=== PATIENT | female | born 1965 | race African-American/Black ===

== ENCOUNTER 2020-12-23 13:55 | Outpatient (REF) | payer MEDICARE, SELFPAY ==
--- NOTE | ~2020-12-23 | XR_ITS ---
EXAMINATION: XR CHEST CLINICAL INFORMATION: Cough COMPARISON: None TECHNIQUE: Frontal view of the chest was obtained. FINDINGS: The cardiac silhouette is enlarged. There is pulmonary venous redistribution and small bilateral pleural effusions. Findings are suggestive of mild CHF. The pulmonary christel are prominent, particularly the right, questionable for enlarged pulmonary arteries versus a lymphadenopathy. There is minimal subsegmental atelectasis at the left lung base. The lungs are otherwise clear. Bony structures are unremarkable. XR/XR chest 1V IMPRESSION: Enlarged cardiac silhouette and probable mild CHF. Prominent pulmonary christel, right greater than left. Differential would include enlarged pulmonary arteries and hilar lymphadenopathy.
== END 2020-12-23 13:56 | disposition home or self-care (01) ==
LOC: HO.XRAY 13:55
PROVIDERS: Visit Provider Hospitalist
DX: R05 Cough (principal)
CPT/HCPCS: 71045

== ENCOUNTER 2021-03-13 10:33 | Outpatient (REF) | payer MEDICARE, SELFPAY ==
[2021-03-13 14:34] LABS: B Type Natriuretic Peptide 3047 pg/mL (<100)
[2021-03-13 14:38] LABS: Anion Gap 16 (12-20); Blood Urea Nitrogen 28 mg/dL (9-16); Calcium 9.3 mg/dL (8.4-10.2); Carbon Dioxide 31 mmol/L (22-29); Chloride 101 mmol/L (96-108); Estimated Glomerular Filt Rate 8; Glucose Random 90 mg/dL (60-115); Sodium 143 mmol/L (135-145)
== END 2021-03-13 10:34 | disposition home or self-care (01) ==
LOC: HO.WFDLDS 10:33
PROVIDERS: Visit Provider Family Medicine
DX: Z00.00 Encounter for general adult medical examination without abnormal findings (principal); I50.9 Heart failure, unspecified
CPT/HCPCS: 36415; 80048; 83880

== ENCOUNTER 2021-11-19 10:08 | Outpatient (REF) | payer MEDICARE, SELFPAY ==
[2021-11-19 11:29] LABS: Mean Corpuscular HGB Conc 29.4 g/dl (31.0-35.0); Mean Corpuscular Hemoglobin 27.4 pg (27.0-33.0); Mean Corpuscular Volume 93.2 fL (80.0-98.0); Mean Platelet Volume 11.4 fL (9.4-12.3); Platelet Count 216 X10*3/uL (160-400); Red Blood Count 3.65 X10*6/uL (4.20-5.50); Red Cell Distribution Width 18.6 % (11.0-16.0); White Blood Count 5.3 X10*3/uL (4.8-10.8)
[2021-11-19 12:18] LABS: Anion Gap 19 (12-20); Blood Urea Nitrogen 56 mg/dL (9-16); Calcium 10.7 mg/dL (8.4-10.2); Carbon Dioxide 32 mmol/L (22-29); Chloride 92 mmol/L (96-108); Estimated Glomerular Filt Rate 4; Glucose Random 112 mg/dL (60-115); Potassium 5.3 mmol/L (3.3-5.1); Sodium 138 mmol/L (135-145)
== END 2021-11-19 10:09 | disposition home or self-care (01) ==
LOC: HO.WFDLDS 10:08
PROVIDERS: Visit Provider Hospitalist
DX: Z01.818 Encounter for other preprocedural examination (principal); K05.6 Periodontal disease, unspecified
CPT/HCPCS: 36415; 80048; 85027

== ENCOUNTER 2023-05-18 10:50 | Outpatient (AMB) | payer OTHER, SELFPAY ==
--- NOTE | 2023-05-18 10:55 | MHC.PC.OV ---
Vital Signs 05/18/23 10:56 Height 5 ft 2 in Weight 134 lb BMI 24.5 BP 110/72 Blood Pressure Location Rt brachial Position Sitting Respiration 12 Pulse 64 Pulse Source Pulse Oximeter Temp 98.4 F Temp Source Temporal Artery Scan Pulse Oximetry (%) 97 Oxygen Delivery Method Room Air Intake Visit Reasons: Physical Exam Elevator Erector Helper Required: Yes Elevator Erector Helper Name: Cary ([id number]) Accompanied by: Self / Same As Patient Allergies No Known Allergies Allergy (Verified 05/18/23 11:28) Medication List - Last Reconciled 05/18/23 by Christian Tomlinson CNP acetaminophen 650 mg PO Q4H PRN atorvastatin 80 mg PO BEDTIME carvedilol 25 mg PO BID docusate sodium 100 mg PO BID lamotrigine 200 mg PO Q8H magnesium oxide 400 mg PO DAILY multivitamin 1 tab PO DAILY mycophenolate sodium 720 mg PO BID oxycodone 5 mg PO Q8H PRN pantoprazole 40 mg PO DAILY 90 days prednisone 7.5 mg PO DAILY psyllium seed (sugar) (Metamucil (sugar) oral powder) 1 tbsp PO DAILY sacubitril-valsartan 97-103 mg (Entresto) 1 tab PO BID senna-docusate sodium tabs PO tacrolimus (Envarsus XR) 2 mg PO DAILY Tobacco use date assessed: 05/18/23 Dental Screening Dental Screen Date: 05/18/23 Did you have a dental visit in the last 12 months?: Yes Did you have a dental problem in the last 6 months where you did not have access to dental care?: No Was dental information given to patient?: Patient has dentist HPI HPI Comments History of Present Illness Details 58-year-old female presents for complete physical exam. 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 She has past medical history significant for hypertension, CHF, and ESRD. 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 She states she has been taking all of her medications as prescribed. She is followed by [facility]. She notes that her last pap smear test was several years ago: normal She states that her last mammogram was on 12/2022, possibly at [facility]: normal Her last colonoscopy was probably 3 years ago, possibly at [facility]: normal She admits to being vaccinated for pneumonia. She is unsure about being vaccinated for shingles Interpretation by a professional room designer via electronic tablet. [facility] Medical History CHF (congestive heart failure) ESRD (end stage renal disease) on dialysis Pacemaker Surgical History History of heart surgery Kidney replaced by transplant S/P aortic valve repair Social History Housing: House Alcohol intake: never Patient Tobacco Use Status: Never used Tobacco e-Cigarette/Vaping Use: Never Used Second Hand Smoke Exposure: No service: No Current occupational status: retired Current occupational exposures/hazards: No Cognitive needs: No Hearing needs: Yes Vision needs: Yes (reading glasses) Questionnaire PHQ-9 Over the last 2 weeks, how often have you been bothered by any of the following problems? 1. Little interest or pleasure in doing things: not at all 2. Feeling down, depressed, or hopeless: not at all 3. Trouble falling or staying asleep, or sleeping too much: not at all 4. Feeling tired or having little energy: more than half the days 5. Poor appetite or overeating: not at all 6. Feeling bad about yourself - or that you are a failure or have let yourself or your family down: several days 7. Trouble concentrating on things, such as reading the newspaper or watching television: not at all 8. Moving or speaking so slowly that other people could have noticed. Or the opposite - being so fidgety or restless that you have been moving around a lot more than usual: not at all 9. Thoughts that you would be better off or of hurting yourself in some way: not at all Total score: 3 Depression Screening Interpretation: Negative Source: Developed by Drs. Mynor Amin, Shelby Wen, Sabas Farris and colleagues, with an educational willian from [employer]. Thrive Questionnaire Date Thrive assessed: 05/18/23 I am a: Patient What is your living situation today?: I have a steady place to live Within the past 12 months, did the food you bought not last and you didn't have the money to get more?: Never true Within the past 12 months, did you worry whether your food would run out before you got money to buy more?: Never true Do you have trouble paying for medicines?: No Do you have trouble getting transportation to medical appointments?: No Do you have trouble paying your heating and electricity bill?: No Do you have trouble taking care of your child, family member or friend?: No Do you have trouble with day-to-day activities such as bathing, preparing meals, shopping, managing finances, etc.?: No Are you currently unemployed and looking for a job?: No Are you interested in more education?: No Please select the resources that you would like help with: None Currently or been in a relationship where the following occur: no concerns reported AUDIT C Alcohol Use Questionnaire (AUDIT-C) 1. How often do you have a drink containing alcohol?: Monthly or less 2. How many drinks containing alcohol do you have on a typical day when you are drinking?: 1 or 2 3. How often do you have six or more drinks on one occasion?: Never Total Score: 1 ERNESTINE-7 AMB Questionnaire ERNESTINE-7 Date ERNESTINE - 7 assessed: 05/18/23 Feeling nervous, anxious, or on edge: 0 = Not at all Not being able to stop or control worryin = Not at all Worrying too much about different things: 0 = Not at all Trouble relaxin = Not at all Being so restless that it is hard to sit still: 0 = Not at all Becoming easily annoyed or irritable: 1 = Several days Feeling afraid as if something awful might happen: 1 = Several days Total ERNESTINE-7 score (0-4 normal; 5-9 mild; 10-14 moderate; 15-21 severe): 2 Source: Developed by Drs. Mynor Amin, Shelby Wen, Sabas Farris and colleagues, with an educational willian from [employer]. Review of Systems Const Details: Denies chills, Denies fatigue, Denies fever(s), Denies headache(s) and Denies weakness HEENT Denies change in vision, Denies dizziness, Denies headache(s), Reports deafness, Denies nasal congestion, Denies sinus pain, Denies sinus pressure and Denies sore throat Card Denies chest pain, Denies lightheadedness, Denies dyspnea and Denies other (palpitations) Resp Denies cough, Denies dyspnea and Denies wheezing GI Denies abdominal pain, Denies melena, Denies hematochezia, Denies change in bowel habits, Denies dyspepsia and Denies nausea Denies hematuria and Denies dysuria Musc Denies abnormal gait, Denies myalgias, Denies arthralgias, Denies numbness and Denies tingling Skin/Breast Denies rash, Denies unusual bruising and Denies wounds Neuro Denies abnormal gait, Denies dizziness, Denies headache(s), Denies memory loss, Denies numbness, Denies Sensory deficit (Neuro), Denies tingling and Denies weakness Psych Denies anxiety, Denies depression and Denies memory loss Endo Denies cold intolerance, Denies fatigue, Denies heat intolerance, Denies polydipsia and Denies polyuria Car/Lymph Denies easy bleeding and Denies easy bruising Aller/Immun Denies wheezing Physical exam (Primary Care) Vital Signs: Last Vital Signs Temp 98.4 F 05/18/23 10:56 Pulse 64 05/18/23 10:56 Resp 12 05/18/23 10:56 BP 110/72 05/18/23 10:56 Pulse Ox 97 05/18/23 10:56 Oxygen Delivery Method Room Air 05/18/23 10:56 BMI result Body Mass Index 24.5 Tobacco/Smoking Status: Tobacco use Status Tobacco use date assessed 05/18/23 05/18/23 11:25 Patient Tobacco Use Status Never used Tobacco 05/18/23 11:03 e-Cigarette/Vaping Use Never Used 05/18/23 11:03 PHQ-9: PHQ-9 Score PHQ-9: Total score 3 05/18/23 11:33 Depression Screening Interpretation: Negative Thrive Assessment: Date of Thrive Assessment Date Thrive assessed 05/18/23 05/18/23 11:25 Currently or been in a relationship where the following occur: no concerns reported Const Other: General: no acute distress, well developed, alert and awake Nutritional Appearance: well nourished Orientation/consciousness: patient oriented x3 HENMT Head: Yes normocephalic and Yes atraumatic Ears: hearing grossly normal bilaterally and TM's normal bilaterally General nose exam: Normal external nose present and Normal nares present Mouth: Normal oral and palatal mucosa present and moist mucous membranes Teeth and gingiva: dentition normal Throat: Yes oropharynx normal Eyes Pupils: Equal, round and reactive pupils present and Pupil accommodation reflex normal EOM: EOMs intact bilaterally Neck Neck: Yes normal visual inspection, Yes no lymphadenopathy and Yes trachea midline Thyroid: Thyroid normal Carotids: no bruits Lymphatic: no lymphadenopathy noted Chest Chest palpation & inspection: normal inspection of the chest Resp Effort & Inspection: normal respiratory effort Auscultation: clear to auscultation bilaterally Cardio Rate: regular rate Rhythm: regular rhythm Heart sounds: S1 normal heart sound present, S2 normal heart sound present, no gallops, murmurs present and no rubs Bruits: no abdominal aortic bruits and no carotid bruits GI Palpation (GI): No Abdominal aortic bruit present, Soft to palpation, nontender, No hepatosplenomegaly present and No Rebound tenderness present Auscultation: normal bowel sounds General: Yes no CVA tenderness Back/Spine/Pelvis Back: no CVA tenderness Cervical Spine: cervical ROM normal and No Cervical spine tenderness Thoracic/Lumbar Spine: thoraco-lumbar ROM normal, No pain with thoraco-lumbar ROM, No thoracic spinal tenderness and No lumbar spinal tenderness Skin General: warm and dry. Normal skin color. Normal skin turgor Lesions: no lesions Rashes: no rashes Trauma: no lacerations or abrasions Wounds: no wounds Nails: normal Neuro General: patient oriented x3, gait normal and CN intact bilaterally except for CN VIII Cranial nerves: Yes Equal, round and reactive pupils present Cognition (Neuro): normal cognition Gait exam (Neuro): Normal gait present Motor exam (neuro): 5/5 motor strength present throughout Sensory Exam: Deafness Deep tendon reflexes (DTR's): Right patellar reflex intensity grade: 2+ and Left patellar reflex intensity grade: 2+ Extrem General: Yes normal to inspection, No edema and No calf tenderness Psych Appearance: grossly normal Affect: normal affect Attitude: cooperative Thought process: Normal thought process present Assessment and Plan Assessment & Plan (1) Normal physical examination, routine: Code(s): Z00.00 - Encounter for general adult medical examination without abnormal findings Plan: Normal physical exam of a 58-year-old female No significant physical restrictions or limitations noted Advised to take all of her medications as prescribed Encouraged to get fasting blood work done before next visit Follow-up with PCP in 3 months or sooner with symptoms or concerns Verbalized understanding and agreed with treatment plan. (2) Hypertension: Code(s): I10 - Essential (primary) hypertension Plan: Blood pressure is controlled, 110/72 Continue to take antihypertensives as prescribed Low-sodium diet encouraged Follow-up with PCP in 3 months Return sooner with symptoms or concerns Verbalized understanding and agreed with treatment plan. (3) Laboratory tests ordered as part of a complete physical exam (CPE): Code(s): Z00.00 - Encounter for general adult medical examination without abnormal findings Plan: Fasting labs ordered as part of a complete physical exam. Advised to fast for at least 10 hours before getting labs drawn. May drink water Verbalized understanding and agreed with treatment plan. Orders: Orders Comprehensive [place]. Panel Fast Today Z00.00 - Encounter for general adult medical examination without abnormal findings Lipid Panel Today Z00.00 - Encounter for general adult medical examination without abnormal findings TSH reflex Free T4 Today Z00.00 - Encounter for general adult medical examination without abnormal findings Complete Blood Count Auto Diff Today Z00.00 - Encounter for general adult medical examination without abnormal findings UA CC w/rflx Micro + Cult Today Z00.00 - Encounter for general adult medical examination without abnormal findings Coding Level of Care Code Est Pt Prev Care 40-64y([id number]) Diagnoses Normal physical examination, routine Z00.00 Hypertension I10 Laboratory tests ordered as part of a complete physical exam (CPE) Z00.00
[2023-05-18 10:56] VITALS: BP 110/72; PULSE 64; RESP 12; TEMP 36.9; O2SAT 97; BMI 24.5
== END 2023-05-18 12:00 | disposition home or self-care (01) ==
PROVIDERS: PCP Hospitalist; Visit Provider Nurse Practitioner Family
DX: Z00.00 Encounter for general adult medical examination without abnormal findings (principal); I10 Essential (primary) hypertension
CPT/HCPCS: 99396